=== PATIENT | male | born 1945 | race Caucasian/White ===

== ENCOUNTER 2025-10-01 19:52 | Outpatient (OUT) | payer MEDICARE, SELFPAY ==
--- OUTSIDE RECORDS SUMMARY | 2025-09-30 04:46 | XMS_ITS | Continuity of Care Document ---
Author Organization [facility] Address [address] [place] [address] Phone Care Team Providers Care Concrete Mixing Plant Laborer Name Role Phone Chay Montero DO Primary Care Provider James Bustillo DO Emergency Provider [phone] Sid Harp DO Admit Provider Sid Harp DO Other Provider [phone] Sue Menezes Other Provider Unavailable Sheree Woodward DO Other Provider Zuhair Neal MD Other Provider Jose Biswas DO Other Provider Ranjith Avila DO Attending Provider [phone] Ranjith Avila DO Other Provider Debbie Liao JOINERY SETTER OUT Other Provider [phone] Betsy Guerin APRN-SERVICES COORDINATOR-C Other Provider Elena Gallego LPN Attending Provider Unav Chay Ha DO Attending Provider [phone] Sheree Woodward DO Attending Provider Sid Harp DO Attending Provider Mars Carpio MD Attending Provider Redd Christine MD Attending Provider Care Teams Patient Care Team Team Status: Active Member Role/Relationship Status Dates Chay Montero DO Primary Care Provider Active Kenny Call Care ProviderActive Visit Care Team Team Status: Active Member Role/Relationship Status Dates Chay Montero DO Primary Care Provider Active Start: July 26, 2025 James Bustillo , DOEmergency ProviderActiveStart: July 26, 2025 Sid Harp , DOAdmit ProviderActiveStart: July 26, 2025 Sid Harp , DOOther ProviderActiveStart: July 26, 2025 Sue BeltreppaOther ProviderActiveStart: July 26, 2025 Sheree Woodward , DOOther ProviderActiveStart: July 26, 2025 Zuhair Neal MDOther ProviderActiveStart: July 26, 2025 Jose Biswas DOOther ProviderActiveStart: July 26, 2025 Ranjith Avila DOAttending ProviderActiveStart: July 26, 2025 Ranjith Avila , DOOther ProviderActiveStart: July 26, 2025 Debbie Liao , APRNOther ProviderActiveStart: July 26, 2025 Betsy Guerin , LJOS-PMA-AYhnzr ProviderActiveStart: July 26, 2025 Visit Care Team Team Status: Active Member Role/Relationship Status Dates Chay Montero DO Primary Care Provider Active Start: July 30, 2025 Edilma Ramírez ProviderActiveStart: July 30, 2025 Visit Care Team Team Status: Inactive Member Role/Relationship Status Dates Chay Montero DO Primary Care Provider Active Start: July 31, 2025 End: July 31, 2025Chay Montero DOAttending ProviderActiveStart: July 31, 2025 End: July 31, 2025 Visit Care Team Team Status: Inactive Member Role/Relationship Status Dates Chay Montero DO Primary Care Provider Active Start: August 01, 2025 End: August 01, 2025Sheree Woodward DOAttending ProviderActiveStart: August 01, 2025 End: August 01, 2025 Visit Care Team Team Status: Inactive Member Role/Relationship Status Dates Chay Montero DO Primary Care Provider Active Start: August 03, 2025 End: August 03, 2025Maria Esther Santiago ProviderActiveStart: August 03, 2025 End: August 03, 2025 Visit Care Team Team Status: Active Member Role/Relationship Status Dates Chay Montero DO Primary Care Provider Active Start: August 24, 2025 Sid Harp DOOther ProviderActiveStart: August 24, 2025 Mars Carrizales Shirin , MDAttending ProviderActiveStart: August 24, 2025 Visit Care Team Team Status: Inactive Member Role/Relationship Status Dates Redd Christine MD Attending Provider Active St art: September 16, 2025 End: September 16, 2025 Patient Care Team Team Status: Inactive Member Role/Relationship Status Dates Chay Montero DO Primary Care Provider Active Start: September 30, 2025 End: September 30, 2025ThMaria Esther Funes ProviderActiveStart: September 30, 2025 End: September 30, 2025 Chief Complaint and Reason for Visit Chief Complaint Admit Date dizzy July 26, 2025 4: 45pm Amb Documentation July 30, 2025 8:44am Hosp f/u, stroke July 31, 2025 11:10am [facility] stroke August 01, 2025 11:06am i49.29 i63.9 r42 August 03, 2025 12:38pm i49.29 i63.9 r42 August 24, 2025 12:00am patient has orders September 16, 2025 7 :47am review meds September 30, 2025 9 :06am Reason for Visit Admit Date Acute ischemic stroke July 26, 2025 4:45pm Dizziness July 26, 2025 4: 45pm Dysarthria July 26, 2025 4: 45pm Facial droop July 26, 2025 4: 45pm Arrhythmia July 26, 2025 4: 45pm Essential (primary) hypertension Septemb er 2024 11:10am Acute ischemic stroke July 31 11:10am Sleep apnea July 31, 2025 11:10am Snoring July 31, 2025 11:10am Cerebral infarction, left hemisphere Sep tember 2024 11:06am Essential (primary) hypertension Septemb er 2025 11:06am Hypersomnia August 01, 2025 11:06am Right hemiparesis August 01, 2025 11:06am Snoring August 01, 2025 11:06am Dizziness August 01, 2025 11:06am Dysarthria August 01, 2025 11:06am Facial droop August 01, 2025 11:06am Reason for Referral Type Reason(s) Provider Provider Contact Information Thad enriquez Address Start Date Call office on Tuesday to schedule follow-up with Neurology.Cerebral infarction, left hemisphere I63.9 - Cerebral infarction, unspecifiedCall office on Tuesday to schedule follow-up with Neurology.[facility] Phone: [phone] [phone] [facility] [address]Oibzab-of with your Primary Care Provider, call office to reschedule if needed.Gus Call Phone: [phone] [facility] [address] [facility] [address].9 - Cerebral infarction, unspecifiedDetermined by Patient August 01, 2025 Allergies, Adverse Reactions, Alerts Allergen Type Severity Reaction Last Updated Verified Status shellfish derived Allergy Unknown Unknown Re action, swelling September 30, 2025 9:13am Yes Active sulfamethoxazole Allergy Unknown rash September 30, 2025 9:13am Yes Active trimethoprim Allergy Unknown rash September 9:13am Yes Active Social History Smoking Status Status Start Date End Date Date of Observa tion Smokes tobacco daily (finding) July 31, 2025 11:23am Observation Status Observation Response Date of Response Legal Sex Male (finding) Sex Assigned At [facility] 1944 Family History Relationship Condition Age at Onset Recorded Date/T maddie father Unknown Family history of other conditionUnknownHeart diseaseUnknownmotherDeceased Unknown Problems Active Problems Problem Diagnosis/Recorded Date Onset Date Status C omments Cerebral infarction, left hemisphere August 01, 2025 10:41am Unknown Active HypersomniaSeptember 2024 11:08amUnknownActiveSnoringSeptember 2024 11:08amUnknownActiveEssential (primary) hypertensionSept2024 6:43am UnknownActiveRight hemiparesisSeptember 2024 11:03amUnknownActive Inactive/Resolved Problems Problem Diagnosis/Recorded Date Onset Date Status C omments Encounter for colonoscopy due to history of adenomatous colonic polyps October 18, 2018 9:29am Unknown Resolved Probl em List clean-up per request of Phys. EHR Cmte Dizziness July 26, 2025 4:41pm Unknown Resolved DysarthriaAugust 2024 4:41pmUnknownResolvedFacial droopAugust 2024 4:41pmUnknownResolvedAcute ischemic strokeAupresbyterian santa [facility]2024 10:41amUnknown Resolved Medications Medication Status Dose Units Route Directions Qty Days Refills S tart Date Stop Date End Date Reason(s) Instructions Adherence Lisinopril 10 mg tablet Discontinued 10 MG PO Nia ly 90 3April 2023 10:37amMarch 2024 10:08amLisinopril 10 mg tablet Tmxetmtcpwkj56VBTVLjkjq084Sinhb 2024 10:08amAugust 2024 4:48pm Tamsulosin 0.4 mg capsuleActive0.4MGPODailyNovant Health [facility] Center2017 12:00amUnknown Lisinopril 10 mg weupedQemccexupopl90KCWIPatzlUbqzlwll 15th, 2018 12:00amApril 2023 10:37amAtorvastatin 20 mg DtrdciOxikiyjocqsa64MHKAGwtum cjxztdo68707 July 26, 2025 11:00pmNov[facility]2024 9:36amClopidogrel 75 mg Tablet Tvjcgubsewop20ZAOAMchwu28796Xxiliz 29th, 2025 11:00pm[facility]2024 9:36am Aspirin 81 mg tablet,delayed release (DR/EC)Kztshuwzwygn08KMXGDrqkn1997Bszcto 30th, 2025 4:47pmNov[facility]2024 9:14amFreeTextSi tablet Orally Once a day; Note: Source Status: Taking; Refills: 3; Qty: 90 Tablet; Provider: Winston Cartwright RLisinopril 10 mg ddmuoyDqyffvknjmir21LGCTJizlt847Stzhml 30th, 2025 4:47pmNov[facility]2024 9:35amAspirin 81 mg tablet,delayed release (DR/EC) Vocvmgrhfhdm95ZXHKRczclHyzdv 2023 11:00pmAugust 2024 4:48pm FreeTextSi tablet Orally Once a day; Note: Source Status: Taking; Refills: 3; Qty: 90 Tablet; Provider: Winston Cartwright RAtorvastatin 20 mg tablet Xwhrtoixitex38HYWTLvurb dtrbnet19044Wgkztekl 3rd, 2025 9:34amNove2024 9:37amClopidogrel 75 mg uskibaMiuawsrymjvr29BDUPSteut11229Ymkoaamd 3rd, 2025 9:34amNove2024 9:37amLisinopril 20 mg asnrfaYjqbhpbvigui93ACIKMwszh886 September 30, 2025 12:00amNove2024 9:37amAtorvastatin 20 mg tablet Glimpy69HUBCSidrj fzmbqpq44015Nithgvpk 3rd, 2025 9:36amComplies with drug therapyClopidogrel 75 mg xvmdhvNcqjpp97UUCLCzkeq17791Uoydhbuz 3rd, 2025 9:36am Complies with drug therapyLisinopril 20 mg qfufjoNgbejo52YVMOKavez441Nuxukckn 3rd, 2025 9:36amComplies with drug therapy Immunizations Immunization Event Date Not Given Reason Dose Number Line Analyst Lot Number Reason(s) Given Vaccine Information Statement (VIS) Detail Administration Location Fluzone TIV High-Dose 65YR+ September 30, 2025 [id number] [facility] [place], unspecified formulationNov2019Pneumococcal Conjugate Vaccine, 13 valentNov2017Pneumococcal Polysacc. Vaccine, 23 valentNov2018Zoster Vaccine Recombinant, Ad[facility]edH[facility]2022Tetanus, Diphtheria, Pertussis (Tdap)August 06, 2013Tetanus, Diphtheria, Pertussis (Tdap)March 09, 2023 Relevant Diagnostic Tests and/or Laboratory Data Laboratory Results Test Collection Date/Time Result Date/Time Result Interpretation Reference Range Result Comment Performing Site Prostate Specific Antigen Total September 16, 2025 6:48am September 16, 2025 11:39am 10.590 ng/mL Above high normal 0.000-4.00 0 Serial tumor marker results determined by assays using different power plant technician s or methods may not be comparable.[facility] Laboratory power plant technician and method:KHANH ESPINOSA UNICEL DXI, CHEMILUMINES CENT IMMUNOASSAY. [facility] [id number] [address] [facility] [address]Oczv Prostate Specific AntigenOctober 2024 6:48amOctober 2024 11:38am1.910 ng/mLMem[facility] [id number] [address] [facility] [address]Glgkexd Free Prostate Specific AgOctober 2024 6:48am September 16, 2025 11:39am18.0 %Based on the work of Faustino et al.RADHA. 27919):1542:47.1998 the percent free PSA may be used to determine the relative risk of prostate cancer in individual men.The percent probability of prostate cancer by patient age for men with non-suspicious GALINA results and total PSa between 4 and 10 ng/ml is as follows:% Free PSA 50 - 64 yrs. 65 - 75 yrs. 0 - 10 56% 55% 10 - 15 24% 35% 15 - 20 17% 23% 20 - 25 10% 20% >25 5% 9%[facility] [id number] [address] [facility] [address] Vital Signs Vital Reading Result Reference Range Collection Date/Time Height 68 [in_i] July 26, 2025 5:02yjBpnzlv72.00 kgAugust 2024 4:59amBody Temperature 98.7 [degF]97.6-99.0August 2024 6:45pmHeart Rate68 /fsy82-523Ulkdqc 2024 6:45pmRespiratory rate18 /brz08-98Chbzol 2024 6:45pmOxygen saturation by Pulse wycssdhp95 %95-100August 2024 6:45pmBP Rrpuzhcs877 mm[Hg]100-140 July 27, 2025 6:45pmBP Fvrbrypeu45 mm[Hg]60-100August 2024 6:45pm Murrss57 [in_i]July 31, 2025 10:06niHgeczi97.25 kgSept2024 10:19amHeart Rate65 /reg92-152Fswrcxira 3rd, 2025 10:19amRespiratory rate18 /min 12-24Sept2024 10:19amOxygen saturation by Pulse xlotjwit10 %95-100 July 31, 2025 10:19amBP Pxyabgoc789 mm[Hg]100-140Sept2024 10:19amBP Ftlatuiqa21 mm[Hg]60-100Sept2024 10:19amBMI (Body Mass Index)31.9 kg/m9Syrncwcil2024 10:64ykYhlkrf77 [in_i]August 01, 2025 10:62vmYsatmb20.25 kgSept2024 10:18amHeart Rate71 /rfx92-184Snruisetl 4th, 2025 10:18amOxygen saturation by Pulse mdgijyxo03 %95-100Sept2024 10:18amBP Qcfggkbo121 mm[Hg]100-140Sept2024 10:18amBP Diastolic 72 mm[Hg]60-100Sept2024 10:18amBMI (Body Mass Index)31.9 kg/m2 August 01, 2025 10:92lvTeysio67 [in_i]September 30, 2025 9:12cdYtqtjq00.98 kgNov2024 9:10amHeart Rate78 /zml04-934Axuaezqj 3rd, 2025 9:10am Oxygen saturation by Pulse jurxjjfx22 %95-100September 30, 2025 9:10amBP Wgffpdsv463 mm[Hg]100-140Nov2024 9:10amBP Pmckaltof26 mm[Hg]60-100 September 30, 2025 9:10amBMI (Body Mass Index)31.1 kg/p5Rdleuncp2024 9:10am Advance Directives Advance Directive Response Recorded Date/ Time Advance Directives No September 16, 2017 12:57pm Insurance Providers Guarantor Rakesh Purcell Herl Address [address] [facility] [id number] Info.Home Phone: Payer Group Member ID Coverage Type Subscriber Relationship to Subscriber Effective Date Expiration Date Medicare [id number] C Herl Id: [id number] [address] [facility] [address] Home Phone: Email: [email or web address] Claims Id: JAXON [id number] C Herl Id: [id number] [address] [facility] [address] Home Phone: Email: [email or web address] Encounters Encounter Location(s) Arrival/Admit Date Discharge/Departure Date Discharge/Departure Disposition Provider(s) Non-patient / Non-visit -[facility] Neurology [facility] 2024 4:45pm Keturah Will-patient / Zbd-poylq-UJZ Family Medicine [facility] 2024 8:44amMichmarleni Owens-GrayDeparted Physician/Provider Office Visit-[facility] Family Medicine [facility]2024 11:10amSept2024 11:59am Discharged to home care or self care (routine discharge)Chay Montero DO Departed Physician/Provider Office Visit-[facility] 11:06amSept2024 11:53amDischarged to home care or self care (routine discharge)JEAN CLAUDE Sorianoeparted Clinical-Electrodiagnostics August 03, 2025 12:38pmSept2024 12:39pmDischarged to home care or self care (routine discharge)Keturah Santiago-patient / Non-visit- [facility] CardiologySeptember 2024 12:00amGeorge All Carpio , MDDeparted Clinical-Lab [facility] 2024 7:47amOctober 2024 7:48amDischarged to home care or self care (routine discharge)Thad Candelaria MDDeparted Physician/Provider Office Visit-[facility] [place] September 30, 2025 9:06amNovember 2024 9:39amDischarged to home care or self care (routine discharge)Chay Montero DO Recent Diagnosis Onset Date Admit Date Acute ischemic stroke Unknown June 4:45pm Dizziness Unknown July 26 4:45pm Dysarthria Unknown July 26 4:45pm Facial droop Unknown July 26 4:45pm Arrhythmia Unknown July 26 4:45pm Essential (primary) hypertension Unknown July 31, 2025 11:10am Acute ischemic stroke Unknown July 31, 2025 11:10am Sleep apnea Unknown July 31, 2 025 11:10am Snoring Unknown July 31, 2 025 11:10am Cerebral infarction, left hemisphere Unknown August 01, 2025 11:06am Essential (primary) hypertension Unknown August 01, 2025 11:06am Hypersomnia Unknown August 01, 2 025 11:06am Right hemiparesis Unknown August 01, 2025 11:06am Snoring Unknown August 01, 2 025 11:06am Dizziness Unknown August 01, 2 025 11:06am Dysarthria Unknown August 01, 2 025 11:06am Facial droop Unknown August 01, 2 025 11:06am Assessments Diagnosis Onset Date Resolution Status Admit Date Acute ischemic stroke inactiveAugust 2024 4:45pmDizzinessinactiveAugust 2024 4:45pm DysarthriainactiveAugust 2024 4:45pmFacial droopinactiveAugust 2024 4:45pmArrhythmiadeletedAugust 2024 4:45pmEssential (primary) hypertension acuteSept2024 11:10amAcute ischemic strokeinactiveSept2024 11:10amSleep apneanoneactiveSept2024 11:10amSnoringnoneactive July 31, 2025 11:10amCerebral infarction, left hemisphereacuteSept2024 11:06amEssential (primary) hypertensionacuteSeptember 2024 11:06amHypersomniaacuteSept2024 11:06amRight hemiparesisacute August 01, 2025 11:06amSnoringacuteSept2024 11:06amDizziness inactiveSept2024 11:06amDysarthriainactiveSept2024 11:06am Facial droopinactiveSept2024 11:06am Plan of Treatment Author Chay Montero [facility] HospitalAuthoredSeptmount[facility] 2024 11:01amContinue current medications at this time as well as scheduled neurology follow-up Continue lisinopril 20 mg daily I strongly advised order for split-night sleep study but he says he would like to focus on recovering from the stroke before he has a sleep study. I advised him to let us know if he changes his mind about an order, I also advised him to discuss this further with Dr. Woodward Author Sheree Woodward [facility] 20[facility] 11:03nf60-nqki-bze male with acute left hemispheric cerebral infarct in the left external capsule extending into the lateral posterior margin of the putamen and superior to lead to the left frontal periventricular white matter. He did have some mild edema with this. Patient presented with dysarthria mild facial droop and dizziness. Patient's CT was negative. CTA of the head and neck showed no stenosis or occlusive disease. There was some questionable cardiac arrhythmia with possible atrial fibrillation. He is going to get an outpatient monitoring and evaluation advisor for further evaluation. Patient was priorly taking aspirin so he will be on aspirin 81 mg daily and Plavix for 21 days then he will discontinue the aspirin and maintain on Plavix. Statin was started due to an LDL of 91. Patient does have stroke risk factors including significant hypertension upon admit with some essential hypertension, tobacco abuse, alcohol usage, age and male. Patient was counseled he should stop smoking and drink alcohol only on occasion. states the patient does snore and snort and stop breathing through the night. He may have a component of obstructive sleep apnea we will go ahead and get a polysomnogram to assess this further. He can have some mild daytime hypersomnia. Patient continues to have some mild dysarthria and motor planning issues in the right upper extremity with mild weakness and we will go ahead and send him to PT OT ST. He was counseled on proper diet including Mediterranean diet, regular exercise and good sleep. Plan Patient's hospital records were reviewed with him CT negative CTA of the head and neck negative MRI of the brain showed the acute left hemispheric infarct Echocardiogram showed no source of thrombus and no PFO Hemoglobin A1c was 5.7 LDL was 91 and statin was added Aspirin 81 mg plus Plavix for 21 days then discontinue the aspirin and maintain on Plavix Stop smoking Minimize alcohol consumption to occasionally Will send for a polysomnogram at [facility] Mediterranean diet Regular exercise not to stay active Controlled the blood pressure 911 emergency room for any strokelike symptoms The diagnosis was all discussed with the patient.?? All questions were answered and they agreed with the treatment plan.?? Patient will call if there are any new issues or questions. Future Tests Future scheduled test information is unavailable Pending Tests Pending diagnostic test information is unavailable Future Visits Future appointment information is unavailable Future Procedures Procedure Name Ordered Date Scheduled Date CA Event Air Conditioning Installer Monitoring July 30 12:08pm [facility] 3:45pmAugust 2024 3:46pmDischarge OrderWell[facility]20[facility] 6:45pmAugust 2024 6:45pmConsult to [facility]yp[facility]2024 7:48amAugust 2024 7:48amConsult to TelemedicineJuly 26, 2025 1:49pmAugust 2024 1:50pmDisability PlacardSeptember 2024 10:45am POLYETHYLENE BAG MACHINE OPERATOR polysom procedureSeptember 2024 10:55am Future Medications Future medication information is unavailable Patient Instructions Instruction Admit Date Know your Meds July 26, 2025 4: 45pm
--- OUTSIDE RECORDS SUMMARY | 2025-10-01 19:56 | XMS_ITS | Data Portability ---
Author Organization [place] - [facility] Address [address] [place] [address] Care Team Providers Care Snout Puller Name Role Phone JENNIFER POWERS JR Family Medicine [phone] Assessment Encounter Date Assessment Date Assessment LastModified by Organization Details LastModified Time 12/13/2022 12/13/2022 Time Spent: Alcohol screening and counselin minutes Depression Screening and counselin minutes ulgbdzo9Bot rvunuhrwc90/15/2023 09:43:51 Plan of Treatment Reminders Order DateSubmit DateProviderLast Modified ByOrganization DetailsLast Modified TimeDetailsAppointmentsNone recorded.LabCMP, serum or herpxs63 [facility] [address] [place] [address], [place], [address], Ph [phone]/14/2022 09:53:32CBC w/ auto diffTHEH[facility], [address] [place] [address], [place], [address], 612/14/2022 09:21:46PSA, serum or ykhckp66sbutler101 [facility] - Lab, [address] [place] [address], [place], [address], 212/22/2022 08:58:17unlisted lab - lipid panelTHENA [facility] - Lab, [address] [place] [address], [place], [address], 912/14/2022 09:53:34TSH, serum or urpdwa01[facility], [address] [place] [address], [place], [address], 388812/14/2022 09:53:36unlisted lab - UA w/ culture if tvaussmxk66/15/2023 12/13/2022[facility], [address] [place] [address], [place], [address], 764412/14/2022 09:19:43unlisted lab - hemoglobin A1C [facility] - Lab, [address] [place] [address], [place], [address], 763412/14/2022 10:03:33Referralorthopedic surgeon dowzxhhr46Dinesh Vásquez MD, [address] , [facility] [address], [place], [address], 712/15/2023 12:58:13ProceduresNone recorded.SurgeriesNone recorded.Zosbnsmctvznsdofakdcgxlo47/15/202301/16/2023 ATHENAIn-Office Order, Internal Use Only DO Not Attach Compendium DO Not Attach Compendium, Do Not Delete/merge, [id number]/13/2022 12:08:14XR, chest, 2 view sbutler101[facility], [address] [place] [address], [place], [address], 486712/27/2022 10:23:58Medication Orders doxycycline hyclate 100 mg fdyawe54[id number], [address] [place], [address], 912/25/2022 11:26:45 Patient TargetsNo targets recorded. Patient Instructions Encounter Date Encounter Id Patient Instructions Last Modified By Organization Details Last Modified Time 12/13/2022 [id number] [facility] l health assessment questionnaire* OLVIN Not available 12/13/2022 12:08:27 Advance Care Directives Patient WebLink Nbrcexmuoiocju6Hja ckzhptlxu29/16/2023 11:22:39advance directives: care dalrelpawwsuvwqojxv2Acf zizptnoaa92/16/2023 11:22:39hearing loss: care ziazqgxcnuyynvarhqt9Jjb emnzuzmjz71/16/2023 11:22:39 heart-healthy diet: care idmuipuecanmibtmkcv5Ytq lcuryhhre52/16/2023 11:22:40 dash diet: care fuxuqcpqdyjerqvzygz9Fvw jrzrafejp73/16/2023 11:22:40preventing falls: care zcvvhzkrbjereuetcil8Xtw gxhmakcyn43/16/2023 11:22:40Personalized Health Plan and Pt encouraged to consume a diet low in carbs, fat and calories. Encouraged to participate in non-weight bearing/aerobic exercise at least 30 minutes/day x 5 days/week. Encouraged to avoid tobacco products and consume alcohol in moderation. Encouraged to balance work with pleasure. yexioxr7Nii /16/2023 12:01:35Pt encouraged to consume a diet low in carbs, fat and calories. Encouraged to participate in non-weight bearing/aerobic exercise at least 30 minutes/day x 5 days/week. Encouraged to avoid tobacco prod ucts and consume alcohol in moderation. Encouraged to balance work with pleasure. reviewed health maintenance issues including Ophthalmology Dental just had some dental oral maxillofacial surgery with extraction We talked about colonoscopy Medication labs are reviewed. Accidentally get labs and x-ray at the hospital He has hypertension which is poorly controlled but at home he gets 140/90 or less we talked about b.i.d. maintenance. We are available for him here in [place] if tqojjqwck5Fmb hhzznuona92/16/2023 12:02:371175027237344wzm soaks Doxycycline If not better in 2 weeks orthopedic consult appreciated in ezirvxvgtmsimy1Yyw xhohcfril43/28/2023 12:45:08 Reason for Referral Orthopedic Surgeon Referral for Bursitis of olecranon of right elbow Referring Physician: Jennifer Powers, Family Medicine, Encounter Date: 10/25/2023 Results Created Date Observation Date Name Description Value Unit Range Abnormal Flag Note LastModifiedBy Organization Detail LastModifiedTime 12/14/2022 12/14/2022 UA W/ CULTURE IF INDICATED color Y ELLOW yellowNot [facility] ([facility]) [address], [place], [address], 4312/14/2022 09:19:43 /UA W/ CULTURE IF INDICATEDappearanceCLEARclearNot [facility] (Labor & Delivery) [address], [place], [address], 3312/14/2022 09:19:43 /UA W/ CULTURE IF INDICATEDspecific gravity1.0251.000-1.030 Not [facility] (Labor & Delivery) [address], [place], [address], 9712/14/2022 09:19:43 /UA W/ CULTURE IF INDICATEDUpH5.05.0-9.0Not [facility] (Labor & Delivery) [address], [place], [address], 2312/14/2022 09:19:43 /UA W/ CULTURE IF INDICATEDleukocyte esteraseNEGATIVEuL negativeNot [facility] ([facility] Delivery) [address], [place], [address], 6412/14/2022 09:19:43 /UA W/ CULTURE IF INDICATEDnitriteNEGATIVEnegativeNot [facility] (Labor & Delivery) [address], [place], [address], 4512/14/2022 09:19:43 /UA W/ CULTURE IF INDICATEDurine hdldoim41dq/dLnegative abnormalNot [facility] ([facility] Delivery) [address], [place], [address], 4212/14/2022 09:19:43 /UA W/ CULTURE IF INDICATEDglucoseNORMALmg/dLnormalNot Available[facility] ([facility]) [address], [place], [address], 7312/14/2022 09:19:43 /UA W/ CULTURE IF INDICATEDketoneNEGATIVEmg/dLnegativeNot Available[facility] ([facility]) [address], [place], [address], 5312/14/2022 09:19:43 /UA W/ CULTURE IF INDICATEDurobilinogenNORMALmg/dLnormalNot Available[facility] ([facility]) [address], [place], [address], Ph [phone] 09:19:43 /UA W/ CULTURE IF INDICATEDbilirubinNEGATIVEmg/dLnegativeNot [facility] (Labor & Delivery) [address], [place], [address], 9412/14/2022 09:19:43 /UA W/ CULTURE IF QELXTRBLThyger28pDakgfihpbUco Available [facility] (Labor & Delivery) [address], [place], [address], 4012/14/2022 09:19:43 BC W-PLT AUTO COMPDWBC7.5thousand/uL3.6-11.0Not Available [facility] (Labor & Delivery) [address], [place], [address], 4912/14/2022 09:21:46 /BC W-PLT AUTO COMPDRBC5.80million/uL3.80-5.90Not Available [facility] (Labor & Delivery) [address], [place], [address], 7312/14/2022 09:21:46 /BC W-PLT AUTO CYGCFTXK13.2g/dL14.0-16.0highNot [facility] (Labor & Delivery) [address], [place], [address], 4812/14/2022 09:21:46 BC W-PLT AUTO JUJXKTVR93.9%41.5-50.4Not [facility] (Labor & Delivery) [address], [place], [address], 2612/14/2022 09:21:46 BC W-PLT AUTO XYHDLFWC67.6hH66-513Lih [facility] (Labor & Delivery) [address], [place], [address], 3012/14/2022 09:21:46 BC W-PLT AUTO CBPXGHDQ73.0fp02-87Kam [facility] (Labor & Delivery) [address], [place], [address], 9012/14/2022 09:21:46 BC W-PLT AUTO YRHAIMKHH13.6g/qJ43-10Vzk [facility] (Labor & Delivery) [address], [place], [address], 6412/14/2022 09:21:46 BC W-PLT AUTO CLQGVRGR16.8%12-15Not [facility] (Labor & Delivery) [address] [place] [address], [place], [address], 5412/14/2022 09:21:46 BC W-PLT AUTO COMPDplatelet ggril760kxsrukzh/lF580-025Mwe [facility] (Labor & Delivery) [address], [place], [address], 1712/14/2022 09:21:46 BC W-PLT AUTO COMPDMPV7.4eM9-85btmNuk [facility] (Labor & Delivery) [address] [place] [address], [address], 7212/14/2022 09:21:46 BC W-PLT AUTO COMPDneutrophil #4.9Not [facility] (Labor & Delivery) [address] [place] [address], [address], 0212/14/2022 09:21:46 BC W-PLT AUTO COMPDlymphocyte #1.7Not [facility] (Labor & Delivery) [address] [place] [address], [address], 9712/14/2022 09:21:46 BC W-PLT AUTO COMPDmonocyte #0.6Not [facility] (Labor & Delivery) [address] [place] [address], [address], Ph [phone] 295[facility]18416812/14/2022 09:21:46 BC W-PLT AUTO COMPDeosinophil #0.2Not [facility] (Labor & Delivery) [address] [place] [address], [address], Ph [phone] 295[facility]34008312/14/2022 09:21:46 BC W-PLT AUTO COMPDbasophil #0.1Not [facility] (Labor & Delivery) [address] [place] [address], [address], Ph (305) 295[facility]34017412/14/2022 09:21:46 BC W-PLT AUTO EGLTMnpgoaxeiil33.4%Not [facility] (Labor & Delivery) [facility] [place], [address], Ph (305) 295[facility]44451712/14/2022 09:21:46 BC W-PLT AUTO COMPDlymphocyte %22.6%Not [facility] (Labor & Delivery) [address] [place], [address], Ph (305) 295[facility]314947 09:21:46 /BC W-PLT AUTO COMPDmonocyte %8.1%Not [facility] (Labor & Delivery) [address] [place], [address], Ph (305) [address] [place], [place] [address]/14/2022 09:21:46 /BC W-PLT AUTO COMPDeosinophil %3.0%Not [facility] (Labor & Delivery) [address] [place], [address], Ph (305) [address] [place], [place] [address]012/14/2022 09:21:46 /BC W-PLT AUTO COMPDbasophil %0.9%Not [facility] (Labor & Delivery) [address] [place], [address], Ph (305) [address] [place], [place] [address]012/14/2022 09:21:46 BC W-PLT AUTO COMPDnucleated RBC's0.1Not [facility] (Labor & Delivery) [address] [place], [address], Ph (305) [facility] 09:21:46 OMP METAB PANELglucose, vzwxw034gm/rE25-987Yaa [facility] (Labor & Delivery) [address] [place], [address], Ph (305) [address] [place], [place] [address]012/14/2022 09:53:32 OMP METAB YDLDOjvvhig383awci/L809-296ersSdu [facility] (Labor & Delivery) [address] [place], [address], Ph (305) [facility] 09:53:32 /OMP METAB PANELpotassium4.1mmol/L3.6-5.1Not [facility] (Labor & Delivery) [address] [place], [address], 1012/14/2022 09:53:32 /OMP METAB PANELchloride thwak209egxm/M626-373Glz Available [facility] (Labor & Delivery) [address], [place], [address], 5612/14/2022 09:53:32 OMP METAB PANELcarbon dioxide ZR741oisc/R91-32Qyu Available [facility] (Labor & Delivery) [address] [place], [address], 3712/14/2022 09:53:32 OMP METAB PANELanion gap4.06-22lowNot AvailableB[facility] ([facility] Delivery) [address] [place], [address], 3612/14/2022 09:53:32 OMP METAB PANELcalcium total9.3mg/dL8.9-10.3Not Available [facility] (Labor & Delivery) [address] [place], [address], 6212/14/2022 09:53:32 OMP METAB PANELurea nitrogen, ewyn38yh/dL8-26Not Available [facility] (Labor & Delivery) [address] [place], [address], 0912/14/2022 09:53:32 OMP METAB PANELcreatinine blood1.0mg/dL0.6-1.2Not Available [facility] (Labor & Delivery) [address] [place], [address], 7412/14/2022 09:53:32 OMP METAB PANELBUN/creatinine ratio12.08.0-20.0Not Available[facility] ([facility]) [address] [place], [address], 61/ 09:53:32 OMP METAB PANELGFRTNPTEST NOT PERFORMED GFR is calculated based on Ethnicity of Patient ( or Non-AfricanAmerican) Age and Sex from the Patient Registration Information. REFERENCE RANGES: Average GFR for Healthy Adults: >60 mL/min/1.73 m^2 Chronic Kidney Disease: 15 - 60 mL/min/1.73 m^2 Kidney Failure: <15 mL/min/1.73 m^2 REFERENCE RANGES ARE NOT AVAILABLE FOR PATIENTS <18 OR >70 YEARS OF AND WILL BE RESULTED WITH TNP (TEST NOT PERFORMED) Not AvailableB[facility] ([facility]) [address] [place], [address], 07 09:53:32 OMP METAB PANELprotein total serum7.5gm/dL6.5-8.1Not Available[facility] ([facility]) [address] [place], [address], 01 09:53:32 OMP METAB PANELalbumin serum4.4g/dL3.5-5.0Not Available [facility] (Labor & Delivery) [address] [place], [address], 3912/14/2022 09:53:32 3COMP METAB PANELAg ratio1.41.2-2.2Not AvailableB[facility] ([facility]) [address] [place], [address], 6312/14/2022 09:53:32 3COMP METAB PANELbilirubin total0.7mg/dL0.3-1.2Not Available [facility] (Labor & Delivery) [address] [place], [address], 7112/14/2022 09:53:32 3COMP METAB PANELalkaline djpsrfprxou63UA/M02-33Tox Available [facility] (Labor & Delivery) [address] [place], [address], 3512/14/2022 09:53:32 OMP METAB PANELtransferase PFV01UG/V61-71Jqo [facility] (Labor & Delivery) [address] [place], [address], 31 09:53:32 3COMP METAB PANELtransferase MKR54PK/H21-37Ksf [facility] (Labor & Delivery) [address] [place], [address], Ph [phone] 09:53:32 OMP METAB PANELserum pirupaccen700.6mOsm/ir700-243fqkSid [facility] (Labor & Delivery) [address] [place], [address], Ph [phone] 09:53:32 LIPID PANELcholesterol bmzgm239oq/cK68-822Ptnsf Cholesterol: Desirable: <200 mg/dl Borderline: 200-239 mg/dl High Risk: >240 mg/dl Metamizole (Dipyrone) may generate false low Cholesterol levels.Not [facility] (Labor & Delivery) [address] [place], [address], 5677 09:53:34 LIPID QMQNYtvxlglhblllco563ah/iG41-274tgwyVwn [facility] (Labor & Delivery) [address] [place], [address], 707812/14/2022 09:53:34 LIPID PANELlow density jklaadlbxho951.7mg/aR27-972ujkpWIK: Desirable: <100 mg/dl Borderline: 100-159 mg/dl High Risk: >160 mg/dlNot [facility] (Labor [facility] Delivery) [address] [place], [address], 7112/14/2022 09:53:34 LIPID PANELvery low density udxxsitaaet73.20mg/dL7-32highNot [facility] (Labor & Delivery) [address], [place], [address], 2312/14/2022 09:53:34 /LIPID PANELhigh density imhbsmknrlc99.9mg/cO70-92akzLzm [facility] (Labor & Delivery) [address], [place], [address], 3512/14/2022 09:53:34 THYROID STIM TSHthyroid stim (TSH)2.29uIU/mL0.34-5.60Not [facility] (Labor & Delivery) [address], [place], [address], Ph ([phone] 09:53:36 HEMOGLOBIN T7IAf88.8g/dLNot [facility] (Labor & Delivery) [address], [place], [address], 7012/14/2022 10:03:33 HEMOGLOBIN K5PQ2P9.67g/dLNot [facility] (Labor & Delivery) [address], [place], [address], 6812/14/2022 10:03:33 HEMOGLOBIN Z4Kahtruuehbx A1C5.6%0.0-6.0Not [facility] (Labor & Delivery) [address], [place], [address], 9712/14/2022 10:03:33 HEMOGLOBIN U8Dwrnxkchml average lryefnc423fy/dLNot [facility] (Labor & Delivery) [address], [place], [address], 083112/14/2022 10:03:33 SA, TOTALPSA, total (serial monitor)7.23NG/mL0-4high Disclaimer: The Access Hybritech PSA assay is a paramagnetic particle, chemiluminescent immunoassayfor the quantitative determination of total prostate specific antigen (PSA) levels in human serum using the Access Immunoassay Systems.Not AvailableB[facility] ([facility] Delivery) [address] [place] [address], [address], 12/14/2022 10:19:00 12/12/2022electrocardiogramNo observation recorded.ATHENAIn-Office Order Internal Use Only DO Not Attach Compendium DO Not Attach Compendium, Do Not Delete/merge, [id number]/13/2022 11:08:170electrocardiogramNo observation recorded.BARCODENot Baorsrgpm82/16/2023 13:16:270 ch-chest [address]V [address] [address] IMAGING REPORT --------- NAME: NORI MEDLEY Room #: : 1945 Bed #: Age: 77 Patient Type: LAR Exam Date/Time: Sex: M 12/14/2022 08:40:00 Order #: Accession #: Exam Description: [id number] CH-CHEST 2V DR Dictated by: JULEE DICKSON Ordering Physician: JENNIFER POWERS Attending Physician: JENNIFER POWERS Primary Care Physician:DEYANIRA DONG FINAL REPORT EXAMINATION: CH-CHEST 2V CLINICAL INDICATION: Male, 77 years old. hypertension COMPARISON: None. FINDINGS: Support Devices: None. Heart: Cardiac silhouette is normal in size. Mediastinum: Mediastinal contours are normal. Lungs: Pulmonary vessels are normal in size. Lungs arewell aerated and clear. Pleura: No pleural effusion is identified. No pneumothorax is present. Osseous Structures: Visualized skeleton is normal. IMPRESSION: 1. No active pulmonary disease. Electronically signed by: Julee Dickson MD 12/14/2022 8:00 AM SOLE CONDITIONER Page 1 of [address] [address] IMAGING REPORT NAME: NORI MEDLEY Room #: : 1945 Bed #: Age: 77 Patient Type: LAR Exam Date/Time: Sex: M 12/14/2022 08:40:00 Order #: Accession #: Exam Description: [id number] CH-CHEST 2V DR Dictated by: JULEE DICKSON Ordering Physician: JENNIFER POWERS Attending Physician: JENNIFER POWERS Primary Care Physician:DEYANIRA DONG FINAL REPORT [address] [place] [address] (Labor & Delivery) [address] [place] [address], [place], [address], 01/ 08:48:46 Result Notes None recorded. Problems Name Problem SNOMED Code Status Onset Date Resolution Date Notes Provider Name and Address Organization Details Recorded Time Adult health examination Dfjixu6112/12/2022Jennifer Powers MD [facility],[address], [place], [address], [address]12/12/2022 09:43:23Benign tlndnpndivsx18273561Lrltcl30/15/2023 Jennifer Powers MD [facility],[address], [place], [address], [address]12/12/2022 09:43:28Benign prostatic hyperplasia with outflow iflrwxhyobn005926261Dyepxd31/16/2023SA 7.2...Jennifer Powers MD [facility],[address], [place], [address], [address]12/14/2022 11:17:23 Problem Notes None recorded. Procedures Surgical History Date Name Laterality Status Provider Name and Address Organization Details Recorded Time 12/13/2022 Medicare Wellness CPT Code, Subs equent completedJennifer Powers MD [facility],[address], [place], [address], [address]12/12/2022 09:43:41111ColonoscopycompletedCatizabel Saleh [address]12/13/2022 11:35:3810Cataract [facility] completed[facility] Hospital[facility] Sale[facility] [address]12/13/2022 11:36:0201 GallbladdercompletTwan Saleh [facility] Ziggy [address]12/13/2022 11:34:45 Imaging Results None recorded. Procedure Notes None recorded. Medical Equipment None Reported. Allergies No known drug allergies Medications Name Sig Start Date Stop Date Status Note LastModified by Organization Details LastModified Time acetaminophen 300 mg-codeine 30 mg table t TAKE 1 TABLET BY MOUTH EVERY 4 TO 6 HOURS NEEDED 10/25/2023ompletedNot AvailableNot AvailableNot Availabletamsulosin 0.4 mg capsuleTAKE 1 CAPSULE BY MOUTH EVERY DAYactiveNot AvailableNot AvailableNot Availablelisinopril 10 mg tabletTAKE 1 TABLET DAILY FOR BLOOD PRESSUREactiveNot AvailableNot AvailableNot AvailableSB Low Dose ASA EC 81 mg tablet,delayed releaseTake 1 tablet every day by oral route.activeNot AvailableNot AvailableNot Availableamoxicillin 250 mg capsuleTAKE 1 CAPSULE BY MOUTH THREE TIMES A DAY 12/13/2022ompletedNot AvailableNot AvailableNot Availabledoxycycline hyclate 100 mg tabletTAKE 1 TABLET BY MOUTH TWICE A DAYactiveNot AvailableNot Available Not Available Vitals Date Recorded Body weight Body mass index (BMI) Body height Heart rate Oxygen saturation Oxygen saturation in Arterial blood by Pulse oximetry Provider Name and Address Organization Details Last Updated DateTime 3 98537.8 1 g 31.8 kg/m2 172.72 cm 67 /min 97 % 97 % Sigrid Saleh LPN [address] 3 11:30:09 Date Recorded Body height Body mass index (BMI) Body weight Heart rate Oxygen saturation Oxygen saturation in Arterial blood by Pulse oximetry Systolic And Diastolic Provider Name and Address Organization Details Last Updated DateTime 3 172.72 cm 32.2 kg/m2 35807.8 6 g 70 /min 96 % 96 % 136/75 mm[Hg] Lissette Henriquez RN [address] 3 11:07:25 Social History Question Answer Notes LastModified by Organization D etails LastModified Time Tobacco Smoking Status Current Every Day Smoker cigars only Sigrid Saleh LPN [address]12/13/2022 11:33:41Do You Have An Advance Directive?Yes hvctiqfc878Aisdwuxdojr not uyjswmacc27/16/2023o You Wear A Helmet When Biking? Gqvjmrgu731Nvgrhghypzn not /28/2023re You Blind Or Do You Have Difficulty Seeing?Ymenwvbgaf199Blstpfnpphs not odtndvknn92/16/2023Is Blood Transfusion Acceptable In An Emergency?Mgnhfcmkhci263Ryfvvbvwtyq not available 12/13/2022What Is Your Level Of Caffeine Consumption?Fvstieluzffzvdnn128 Information not utmkuulgh68/16/2023re You Deaf Or Do You Have Serious Difficulty Hearing?Kylofiiywo810Rfzymvkhxkz not qnpquddgj21/16/2023What Type Of Diet Are You Following?PTAUYZXsirmccix951Qbvtzgghnct not vcmlfnorz97/16/2023What Is The Highest Grade Or Level Of School You Have Completed Or The Highest Degree You Have Received?GR47736-0qknwyl708Hdrfeqxvtjb not wgvpxynph47/28/2023 How Many Times Per Week Do You Exercise?5-7 Times Per WeekWALKS KIXUJnbufjp114 Information not mhcjodfed51/28/2023When Did You Quit Smoking? 11-21fssztmafdcosvhkfgqdoehoxkmgivmc412Hezvakjntkx not kvknvpvos34/16/2023re There Any Guns Present In Your Home?Hoyhbith277Atysyxrxqxs not available 10/25/2023Which Of Your Hands Is Dominant?Hrrfyhnpfovpu186Aewtejvuctd not zpvnvryqn21/16/2023 You Have A Medical Power Of Customer Care Representative?Rlzidqpcjbg885 Information not hkqpyeicu50/16/2023What Was The Date Of Your Most Recent Tobacco Screening?10/25/20236048quxclb156Dyiegdkeikv not hzxfsugjm97/28/2023How Many Children Do You Have?1rqnwyi464Kmigtoamfsz not gpeyjubmn23/28/2023 You Have Any Pets?Zuyrgdqeke986Avxalofckol not ljeqtzumz71/16/2023What Is Your Relationship Status?Gsguouferimog713Gtuapqnzjny not iynrgckro37/28/2023 You Use Your Seat Belt Or Car Seat Routinely?Dlsxopkdz511Yteijrhcmlw not available 10/25/2023 You Have Smoke And Carbon Monoxide Detectors In Your Home?No bxxpzabv824Kmfpvuelyda not axckrqtmh63/16/2023re You Passively Exposed To Smoke?Bhoocyrzwg203Pfjffslxvju not ypiobllrt20/16/2023 You Use Sunscreen Routinely?Gwfufgrp834Fjhhikwlkkn not /28/2023Have You Recently Traveled Abroad?Etzjbeyt689Bzsylaojmly not fifecjmee04/28/2023 You Have Difficulty Walking Or Climbing Stairs?Wecjzfktme145Tirofuuoczh not available 12/13/2022 Sex: Unknown Functional Status Question Answer Note LastModified by Organization D etails LastModified Time How many times per week do you consume alcohol? 5-7 times per week dvzatf239Rbnmzmywbub not qomtshjkr36/28/2023 you use any illicit or recreational drugs?Qnoljdzq565Qdwlbzxjkum not zyrasitpg29/28/2023 you or have you ever used any other forms of tobacco or nicotine?Glpvfnzoqua541Eaisfqdbmhf not wpnremase32/16/2023What is your level of alcohol consumption?Moderate fuevrzpp500Ctqxdzfscfd not pxjiknufj27/16/2023re you currently employed?NoOWNES RTBNVXPSftiuzw838Mzfjvoqdzvy not takislexs34/28/2023o you have difficulty doing errands alone?Qgnjtpebnc447Ipqxqpkvccg not npegkqicf43/16/2023re you able to care for yourself independently?Nuihftmguhj553Wkbnirrmcok not available 12/13/2022o you have difficulty dressing, bathing, grooming, or toileting?No cfmbvbbr720Swhuvildwid not qximxvpox14/16/2023What is your exercise level? Tgzybkelkacvtu474Etalnwkkzhu not rrvodddfg09/28/2023 Mental Status Question Answer Note LastModified by Organization D etails LastModified Time Do you have difficulty concentrating, rememberin g or making decisions? No icuphfrj454Fnvotzrwpzd not ujgfeudmv87/16/2023 Family History Relationship Description Onset Age of this Age Resolved Age Notes LastModified by Organization Details LastModified Time Father No current problems or disabilit y ribrbfju349Gwm bsyymjssj14/16/2023 11:32:00MotherNo current problems or yfmsmrubvpkralsloe465Qce pmtvbexsu11/16/2023 11:32:00 Medical History Condition Response Colonoscopy Y Urinary Problems Y Chicken Pox Y Immunizations Y Hypertension Y Immunizations Vaccine Type Date Status Note Provider Nam e and Address Organization Details Recorded Time Influenza, high-dose, trivalent, PF 10/22/2019 compl eted Sigrid Saleh LPN null[place] [facility] Bhhllwg8012/13/2022 11:30:14Influenza, split virus, trivalent, dsdxqvwtuxto79/19/2013completedCatherine PLACIDO SalehN null[place] [facility]14 Serxqnx0012/13/2022 11:30:14zoster ifhutlpsfun03/10/2023completed Sigrid Saleh LPN null[place] [facility] Vvwsohp4512/13/2022 11:30:14Novel fwlodgejl-L9K1-88, preservative-free 12/02/2009completedCatizabel Saleh LPN null, [facility]14 Qvxqovn9412/13/2022 11:30:14Influenza, high-dose, quadrivalent, PF 2completedCatherine Delfino, [employer] null[place] [facility]14 Zuoqezl2512/13/2022 11:30:14Influenza, split virus, trivalent, zaqgowaagevt56/25/2009completedCatherine Delfino [employer] null, [facility]14 Xjmudhh4012/13/2022 11:30:14Influenza, split virus, quadrivalent, PF 10/28/2017completedCatherine Delfino [employer] null, [facility]14 Tubdtdk7012/13/2022 11:30:14pneumococcal polysaccharide PDC471312/22/2018 completedCatherine Delfino [employer] null, [facility]14 Xllxjbt1512/13/2022 11:30:14 Past Encounters Encounter ID Performer Location Encounter Start Date Encounter Closed Date Diagnosis/Indication Diagnosis SNOMED-CT Code Diagnosis ICD10 Code Diagnosis IMO Codes Diagnosis Note [id number] Jennifer Powers MD [facility] [address] [place] [phone] 12/13/2022 11:05:25 12/13/2022 12:00:18 Adult health examination 649185792 Z00.00 12/13/2022 This is not annual Medicare wellnessScreening for vlcexfpp536513888 Z13.89 Depression qvlywbspb780842924I12.31 Benign eptcgkklqdgo73023037B79 Benign prostatic hyperplasia with outflow jksmnstcetw325690913F68.1 Flomax 0.4 mg q.d. to b.i.d.[id number] Powers [facility] [address] [place] [phone] 10/25/2023 10:22: 11:31:12Benign dtcxysfhblrc00678710O91 Benign prostatic hyperplasia with outflow vsozyjgmhgj935215017V86.1 Flomax 0.4 mg q.d. to b.i.d.PSA 7.2...Bursitis of olecranon of right elbow 493677828697781K31.21 10/25/2023 Health Concerns Section Related Observation LastModified by Organization Detai ls LastModified Time None Recorded Concern Status LastModified by Organization Details LastModified Time None Recorded Advance Directives Directive Y: Payers Insurance Date Sequence Insurance Name Policy Number Policy José Covered Member ID José Member ID Guarantor Name 04/22/2025 2 [employer] (MEDICARE SUPPLEMENT) Nori [id number]Nori Medley [id number] Cierra Notes Date Note Type Note Provider Name and Address Orga nization Details Recorded Time 12/13/2022 text/html 77-year-old new patient history of hypertension today establish care history physicalNo fever vomiting diarrhea chest pain shortness breast syncope near syncopeReally establishing care in [facility] here [facility] the [facility] [place] on [facility] 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 businessBowel bladder function normalHealth maintenance issues sx-yf-jqggJwcfuaylid studies chest x-ray recommended This was advertised his annual Medicare wellness and patient declined that today and so we did not do that.Jennifer Powers MD [address], [place], [address], [facility]14 Qtqvwbp8012/13/2022 12:02:5310/25/2023text/html Urgent walk-in visitHistory hypertension BPH with PSA 7.2Age 78Significant elbow swelling the last 1 week.No blunt trauma red swollen over the weekend better todayJennifer Powers MD [address], [place], [address], [facility]14 Zckmebk5010/25/2023 12:45:22
--- OUTSIDE RECORDS SUMMARY | 2025-10-01 19:56 | XMS_ITS | Clinical Summary ---
Author Organization [facility] Healthcare Address [address] [place] [address] Care Team Providers Care Associate Producer Name Role Phone Unavailable Primary Care Provider Unavailabl e Allergies No known active allergies Medications MedicationSigDispense QuantityRefillsLast FilledStart DateEnd DateStatus lisinopril 10 MG tablet 05/23/2023ctive tamsulosin (Flomax) 0.4 MG 24 hr capsule 05/23/2023ctive aspirin 81 MG EC tablet Take 81 mg by mouth DailyActive Active Problems No known active problems Family History Medical HistoryRelationNameCommentsMelanomaNeg Hx Social History Tobacco UseTypesPacks/DayYears UsedDateSmoking Tobacco: Some DaysCigarsSmokeless Tobacco: Never Tobacco Cessation:Ready to Q uit: Not Asked; Counseling Given: Not Answered Sex and Gender InformationValueDate RecordedSex Assigned at BirthNot on file Legal WibLxhu9102/09/2023 6:47 PM EDTGender IdentityNot on fileSexual Orientation Not on file Last Filed Vital Signs Vital SignReadingTime TakenCommentsBlood Hhibdllx434/7005/ 8:49 AM EDT Pulse--Temperature--Respiratory Rate--Oxygen Saturation--Inhaled Oxygen Concentration--Weight--Height--Body Mass Index-- Plan of Treatment DateTypeDepartmentCare Team (Latest Contact Info)Hkumlepnyee88/05/2025 8:50 AM ESTOffice Visit [facility] [address] [facility] [address] [place] [address] Sierra Rudolph MD [address] [facility] [address] [place] [address] Insurance
--- OUTSIDE RECORDS SUMMARY | 2025-10-01 19:56 | XMS_ITS | Clinical Summary ---
Author Organization [employer] Address [facility] [id number] [address] [place] [address] Care Team Providers Care Consumer Marketing Specialist Name Role Phone Unavailable Primary Care Provider Unavailabl e Encounters DateTypeDepartmentCare JpsrGlpjkeuoxsz41/29/2025 5:45 PM EDT - 07/27/2025 7:42 AM EDTEmergency [facility] [address] [place] [phone] Discharge Disposition: Telemedicine Frqoajmek05/29/2025 3:15 PM EDTAncillary Procedure [facility] [address] [place] [address] Pain07/26/2025 3:10 PM EDTAncillary Procedure [facility] [address] [place] [address] Pain07/26/2025 3:05 PM EDTAncillary Procedure [facility] [address] [place] [address] Pain07/26/2025Orders Only [facility] [address] [place] [address] External, Scanning Provider Pain (Primary Dx)from Last 3 Months Social History Tobacco UseTypesPacks/DayYears UsedDateSmoking Tobacco: Never AssessedChildcare AnswerDate CesygaynKojbawumgMofakop38/11/2019EmploymentAnswerDate Recorded XxmtrkzufhNiwxudg72/11/2019Sex and Gender InformationValueDate RecordedSex Assigned at BirthNot on fileLegal LupGhfl8607/01/2015 9:19 PM EDTGender Identity Not on fileSexual OrientationNot on file Plan of Treatment Health MaintenanceDue DateLast DoneCommentsDepression Amezxgehy05/12/1958Tobacco Fdpzpeaej67/12/1958Fall Risk Yrcwgyplf24/12/2011RSV ( or age 60+ yrs) (1 - 1-dose 75+ series)2021Influenza Krbhnke60/11/2023, 08/31/2022, 12/05/2021, Additional history existsDTaP,Tdap and Td Vaccines (2 - Td or Tdap) Zoster (Shingles) UsdqofdXmclcdhkg36/02/2023, 12/07/2022 Medical Devices Not on file Procedures Procedure NamePriorityDate/TimeAssociated DiagnosisCommentsCT CTA CAROTIDRoutine 07/26/2025 3:[address] CTA UDEWAsdlxqn43/29/2025 3:[address] BRAIN WO CONT STROKE ALERTSTAT Yocjkdu3407/26/2025 3:05 PM EDT Pain from Last 3 Months Results * CT angiogram carotid (07/26/2025 3:15 PM EDT)Specimen (Source)Anatomical Location / LateralityCollection Method / VolumeCollection TimeReceived Time Narrative Authorizing ProviderResult TypeResult StatusScanning Provider ExternalIMG CT ORDERABLESFinal Result * CT angiogram head (07/26/2025 3:10 PM EDT)Specimen (Source)Anatomical Location / LateralityCollection Method / VolumeCollection TimeReceived Time Narrative Authorizing ProviderResult TypeResult StatusScanning Provider ExternalIMG CT ORDERABLESFinal Result * CT brain without contrast stroke alert (07/26/2025 3:05 PM EDT)Specimen (Source)Anatomical Location / LateralityCollection Method / VolumeCollection TimeReceived Time Narrative Authorizing ProviderResult TypeResult StatusScanning Provider ExternalIMG CT ORDERABLESFinal Result from Last 3 Months
== END 2025-10-01 19:53 | disposition home or self-care (01) ==
PROVIDERS: PCP Psychiatry & Neurology Neurology; Visit Provider Psychiatry & Neurology Neurology
DX: G47.33 Obstructive sleep apnea (adult) (pediatric) (principal)
CPT/HCPCS: 95810